=== PATIENT | male | born 1985 | race Two or more races ===

== ENCOUNTER 2016-11-06 17:19 | Emergency (ER) | payer SELFPAY ==
[2016-11-06 18:00] VITALS: BP 125/80
--- NOTE | 2016-11-06 18:54 | UC ---
Truncal Trauma HPI - HPI Summary HPI Summary: 31 yo male crushed between two cows a couple of days ago at work C/O persistent right sided CP no SOB no abd pain - History Of Current Complaint Chief Complaint: UCUpperExtremity Stated Complaint: RIB PAIN AFTER INJURY Time Seen by Provider: 11/06/16 18:47 Hx Obtained From: Patient Onset/Duration: Sudden Onset, Lasting Days Onset Of Pain: Immediate Severity Initially: Moderate Severity Currently: Moderate Pain Intensity: 6 Pain Scale Used: 0-10 Numeric Mechanism Of Injury: Blunt Trauma Aggravating Factor(s): Deep Breathing Alleviating factor(s): Nothing Associated Signs And Symptoms: Positive: Chest Pain - Allergies/Home Medications Allergies/Adverse Reactions: Allergies Allergy/AdvReac Type Severity Reaction Status Date / Time No Known Allergies Allergy Verified 11/06/16 18:00 PMH/Surg Hx/FS Hx/Imm Hx Previously Healthy: Yes - Surgical History Surgical History: Yes Surgery Procedure, Year, and Place: left shoulder surgery - Family History Known Family History: Positive: Hypertension - Social History Alcohol Use: None Substance Use Type: None Smoking Status (MU): Never Smoked Tobacco Review of Systems Constitutional: Negative Skin: Negative Eyes: Negative ENT: Negative Respiratory: Negative Cardiovascular: Chest Pain Gastrointestinal: Negative Genitourinary: Negative Motor: Negative Neurovascular: Negative Musculoskeletal: Negative Neurological: Negative Psychological: Negative All Other Systems Reviewed And Are Negative: Yes Physical Exam Triage Information Reviewed: Yes Appearance: Well-Appearing, No Pain Distress, Well-Nourished Vital Signs: Initial Vital Signs Temp 98.4 F 11/06/16 17:53 Pulse 76 11/06/16 17:53 Resp 16 11/06/16 17:53 BP 125/80 11/06/16 17:53 Pulse Ox 97 11/06/16 17:53 Vital Signs Reviewed: Yes Eyes: Positive: Conjunctiva Clear ENT: Positive: Hearing grossly normal, Pharynx normal, Pharyngeal erythema, TMs normal. Negative: Nasal congestion, Nasal drainage, Tonsillar exudate, Trismus , Muffled/hoarse voice Neck: Positive: Supple, Nontender, No Lymphadenopathy Respiratory: Positive: Lungs clear, Normal breath sounds, No respiratory distress, No accessory muscle use. Negative: Chest non-tender Cardiovascular: Positive: RRR, No Murmur Musculoskeletal: Positive: ROM Intact, No Edema Neurological: Positive: Alert Psychological Exam: Normal Truncal Trauma Course/Dx - Differential Dx/Diagnosis Provider Diagnoses: RIGHT RIB CONTUSIONS. R/O OCCULT RIB FRACTURE Discharge - Discharge Plan Condition: Stable Disposition: HOME Prescriptions: Naproxen Sodium [Naproxen Sodium 500 MG TAB] 500 mg PO BID PRN #30 tab PRN Reason: Pain Patient Education Materials: Rib Contusion (ED) Print Language: AFGHAN Forms: *Work Release Referrals: No Primary Care Phys,NOPCP [Primary Care Provider] - Additional Instructions: PLEASE RETURN HERE FOR RE EVALUATION ON 11/10 IF YOU FEEL YOU CAN NOT RETURN TO FULL DUTY. Images Front/Back of Body, Lg ([place]): 1 - tender here
--- NOTE | 2016-11-06 19:29 | RAD ---
Indication: Right rib injury. 2 views of the chest including dual energy PA views are reviewed. No pneumothorax is noted. Lung tafoya are clear. 3 additional views of the right ribs demonstrates no fracture. IMPRESSION: No fracture of the right ribs is noted. No pneumothorax is noted.
== END 2016-11-06 19:48 | disposition home or self-care (01) ==
LOC: UCCORT 17:19
DX: S20.211A Contusion of right front wall of thorax, initial encounter (principal); W55.29XA Other contact with cow, initial encounter; Y93.9 Activity, unspecified; Y92.9 Unspecified place or not applicable; Y99.0 Civilian activity done for income or pay
CPT/HCPCS: 99201; G0463

== ENCOUNTER 2017-01-27 14:02 | Emergency (ER) | payer SELFPAY ==
[2017-01-27 14:13] VITALS: BP 132/84
--- NOTE | 2017-01-27 15:05 | RAD ---
Indication: Lower lateral LEFT rib cage pain with deep breathing. Fall onto LEFT RIBS 3 days ago. Comparison: November 06, 2016 Technique: Dual energy PA chest and 4 dedicated LEFT rib views. Report: Mild LEFT basilar subsegmental atelectasis. Trace LEFT pleural effusion not excluded. Negative for pneumothorax. No conspicuous LEFT rib fracture. Negative for cardiomegaly. Unremarkable central pulmonary vasculature and mediastinal contours. Surgical anchors at the RIGHT humeral head. IMPRESSION: Mild LEFT basilar atelectasis and potential trace pleural effusion. No conspicuous LEFT rib fracture or pneumothorax.
--- NOTE | 2017-01-27 15:29 | UC ---
Truncal Trauma HPI - HPI Summary HPI Summary: ON 01/24/17 FELL ONTO METAL TUBING INJURING LEFT RIBS. SINCE THAT TIME HAS HAD CONTINUED PAIN. NO SOB. NO FEVER. NO ABDOMINAL PAIN. - History Of Current Complaint Chief Complaint: UCUpperExtremity Stated Complaint: LEFT RIB INJURY WC Time Seen by Provider: 01/27/17 14:13 Hx Obtained From: Patient, Family/Crew Leader Gluing Onset/Duration: Sudden Onset, Lasting Days, Still Present Onset Of Pain: Post Accident Severity Initially: Moderate Severity Currently: Moderate Mechanism Of Injury: Blunt Trauma, Direct Blow Aggravating Factor(s): Movement Alleviating factor(s): Rest Associated Signs And Symptoms: Negative: SOB, Chest Pain, Cough, Hematuria, Abdominal Pain - Allergies/Home Medications Allergies/Adverse Reactions: Allergies Allergy/AdvReac Type Severity Reaction Status Date / Time No Known Allergies Allergy Verified 01/27/17 14:13 Home Medications: Home Medications Naproxen Sodium [Naproxen Sodium 500 MG TAB] 500 mg PO ONCE 01/27/17 [History Confirmed 01/27/17] PMH/Surg Hx/FS Hx/Imm Hx Previously Healthy: Yes - Surgical History Surgical History: Yes Surgery Procedure, Year, and Place: left shoulder surgery - Family History Known Family History: Positive: Hypertension - Social History Occupation: Employed Full-time Lives: With Family Alcohol Use: None Substance Use Type: None Smoking Status (MU): Never Smoked Tobacco - Immunization History Most Recent Influenza Vaccination: no Review of Systems Constitutional: Negative Skin: Bruising - LEFT RIBS Eyes: Negative ENT: Negative Respiratory: Negative Cardiovascular: Negative Gastrointestinal: Negative Genitourinary: Negative Motor: Negative Neurovascular: Negative Musculoskeletal: Arthralgia - LEFT RIBS, Myalgia - LEFT RIBS Neurological: Negative Psychological: Negative Is Patient Immunocompromised?: No All Other Systems Reviewed And Are Negative: Yes Physical Exam Triage Information Reviewed: Yes Appearance: Well-Appearing, Well-Nourished, Pain Distress - MILD Vital Signs: Initial Vital Signs Temp 98.2 F 01/27/17 14:08 Pulse 71 01/27/17 14:08 Resp 14 01/27/17 14:08 BP 132/84 01/27/17 14:08 Pulse Ox 99 01/27/17 14:08 Vital Signs Reviewed: Yes Eye Exam: Normal ENT Exam: Normal ENT: Positive: Normal ENT inspection, Hearing grossly normal, TMs normal Dental Exam: Normal Neck exam: Normal Neck: Positive: Supple, Nontender, No Lymphadenopathy Respiratory: Positive: Lungs clear, Normal breath sounds, No respiratory distress, No accessory muscle use. Negative: Chest non-tender - LEFT RIBS TENDER TO PALPATION Cardiovascular Exam: Normal Cardiovascular: Positive: RRR, No Murmur, Pulses Normal, Brisk Capillary Refill Abdominal Exam: Normal Abdomen Description: Positive: Nontender, No Organomegaly, Soft Musculoskeletal: Positive: Strength Intact, ROM Intact, No Edema, Other: - LEFT RIBS TENDER Neurological Exam: Normal Psychological Exam: Normal Skin: Positive: Other - BRUISING LEFT LATERAL AND ANTERIOR RIBS Truncal Trauma Course/Dx - Differential Dx/Diagnosis Differential Diagnosis/HQI/PQRI: Chest Wall Contusion, Pneumothorax, Rib Fracture, Thoracic Provider Diagnoses: Mild LEFT basilar atelectasis and potential trace pleural effusion. LEFT RIB SPRAIN/CONTUSION Discharge - Discharge Plan Condition: Stable Disposition: HOME Patient Education Materials: Rib Contusion (ED), Atelectasis (ED) Referrals: [facility] [Outside] No Primary Care Phys,NOPCP [Primary Care Provider] - Additional Instructions: LIGHT DUTIES; FOLLOW UP PROMPTLY WITH PRIMARY CARE IN ONE WEEK FOR REPEAT XRAY. SEEK IMMEDIATE EVALUATION AT THE EMERGENCY DEPARTMENT IF YOU EXPERIENCE SHORTNESS OF BREATH, COUGH, FEVER. OR IF ANY NEW OR UNUSUAL SYMPTOMS DEVELOP.
== END 2017-01-27 15:26 | disposition home or self-care (01) ==
LOC: UCCORT 14:02
DX: S23.41XA Sprain of ribs, initial encounter (principal); S20.20XA Contusion of thorax, unspecified, initial encounter; W18.09XA Striking against other object with subsequent fall, initial encounter; Y93.9 Activity, unspecified; Y92.9 Unspecified place or not applicable; J98.11 Atelectasis
CPT/HCPCS: 99211; G0463